=== PATIENT | male | born 1960 | race Caucasian/White ===

== ENCOUNTER 2025-03-20 14:25 | Emergency (ER) | payer BC, SELFPAY ==
[2025-03-20 14:29] VITALS: BP 146/85; PULSE 88; RESP 18; TEMP 36.8; O2SAT 95; BMI 29.6
--- NOTE | 2025-03-20 14:40 | ED_ITS ---
HPI - General Adult General Chief complaint: Head Injury/Pain Stated complaint: Fell On Face Time Seen by Provider: 03/20/25 14:31 History of Present Illness HPI narrative: patient was outside with 5 yr old granddaughter cedric price and she fell causing patient to fall but did not want to fall on her so jumped falling on concreate on right side with right brow lac, right upper cheek bone lac. vision was off after event blurry but stated is returning now. denies nausea or LOC. right hand hurts on the medial side . 64-year-old man presenting to the emergency department after a fall. Was assisting granddaughter with kattyer skmeka. When she fell he jumped over her f alling onto his right side. No loss of consciousness. Denies neck or back pain. Hurt his right hand a little as well but he thinks that is fine. No chest pain or shortness of breath. Not anticoagulated. Right eye historically with poor vision since retinal injury/tear. More sluggish pupil he says here as well. The left eye is more reactive and also amblyopic Thinks it was likely the sunglasses that cut his face; they were destroyed Related Data Home Medications ?Medication ?Instructions ?Recorded ?Confirmed Lexapro PO DAILY 03/20/25 Allergies Allergy/AdvReac Type Severity Reaction Status Date / Time No Known Drug Allergies Allergy Verified 03/20/25 14:38 Review of Systems Status of ROS: Reports: 6 or more systems reviewed and unremarkable except as noted in History and below Exam Narrative: Exam Narrative: Pleasant. NAD. Positive. Breathing easily. Head with some fresh in dried blood on the right side primarily. Left pupil is mildly dilated relative to the right. Is also more quickly reactive consistent with history. There is a 1 in laceration gapping in the outer right brow. Also 3 quarter-inch partial dermal laceration horizontal in the right outer maxillary ridge. A long linear scrape that deepens towards the lower face that runs from the brow laceration all the way down the cheek. Oropharynx unremarkable. Neck is supple nontender. Back nontender. No pain to palpation over the clavicles. Mildly sore to the palpation of the medial hand of the right. Opens and closes without difficulty. Good slip box changer strength. Moves all extremities without difficulty. Const: Vital Signs, click to edit/add: Vital Signs - 24 hr 03/20/25 14:29 Temperature 98.2 F Pulse Rate [Pulse Oximeter] 88 Respiratory Rate 18 Blood Pressure [Ri ght Upper Arm] 146/85 H Pulse Oximetry 95 Oxygen Delivery Me thod Room Air Documenting provider has reviewed patient's vital signs: yes Course Vital Signs Vital signs: Initial Vital Signs Temperature 98.2 F 03/20/25 14:29 Temperature Source Temporal Artery Scan 03/20/25 14:29 Pulse Rate 88 03/20/25 14:29 Respiratory Rate 18 03/20/25 14:29 Blood Pressure 146/85 H 03/20/25 14:29 Blood Pressure Mean 105 03/20/25 14:29 Blood Pressure Position Sitting 03/20/25 14:29 Pulse Oximetry 95 03/20/25 14:29 Oxygen Delivery Method Room Air 03/20/25 14:29 Vital Signs Temperature 98.2 F 03/20/25 14:29 Pulse Rate 88 03/20/25 14:29 Respiratory Rate 18 03/20/25 14:29 Blood Pressure 146/85 H 03/20/25 14:29 Pulse Oximetry 95 03/20/25 14:29 Oxygen Delivery Method Room Air 03/20/25 14:29 Temperature 98.2 F 03/20/25 14:29 Pulse Rate 88 03/20/25 14:29 Respiratory Rate 18 03/20/25 14:29 Blood Pressure 146/85 H 03/20/25 14:29 Pulse Oximetry 95 03/20/25 14:29 Oxygen Delivery Method Room Air 03/20/25 14:29 Medications Administered Medications: Discontinued Medications Generic Name Dose Route Start Last Admin Trade Name Freq PRN Reason Stop Dose Admin Lidocaine/Epinephrine 5 ml 03/20/25 15:08 03/20/25 15:14 Lidocaine 1%-Epi 1:100,000 INFILTRATI 03/20/25 15:09 5 ml ONCE ONE Administration Medical Decision Making MDM Narrative Medical decision making narrative: These injuries do appear to be consistent with the glasses. We did discuss head imaging but I think this will not be necessary in this case. No degree of distracting injuries to warrant neck imaging. I think hand does not require imaging either. Appears quite clear. Does not appear to be concussed. Suturing would be in order here. Possibly Steri-Strips to the right maxillary ridge. Did return with lidocaine with epinephrine. Injected into the brow wound. Further cleansed with Shur-Clens solution. I sutured this with interrupted sutu res of Ethilon. Very good wound approximation control bleeding is achieved. Anesthetized also the right areas I think actually this would be more easily managed with sutures. Should also size of scar. Interrupted Ethilon sutures placed here as well. Improved appearance/wound approximation. Tolerated all this quite well. Bacitracin and Band-Aid placed. See patient discharge plan for further discussion sutures out in 6-7 days. antibiotic ointment for 4 days and then to a dry dressing. ok to get wet but try not to soak while sutures are in. for further scar reduction/wound healing if desired -- after the scab falls off, can apply daily vitamin e oil or something like maderma or silicone-containing ointments or bandaids daily. especially protect from sun exposure for the first 9 - 12 months. I would probably keep the longer scrape moist with antibiotic ointment over this next week at least Watch for spreading redness after 2 days accompanied by heat, swelling, marked increase in pain, purulent drainage. Signs or symptoms of a concussion might be nausea or headache upon exertion which can also be an indication to back off that level of activity and reassess in a week.? Concussion can also be represented by smoldering nausea or smoldering headache, difficulty with concentration, mood lability, general somnolence, sense of persistent fog or dizziness/lightheadedness.? If these symptoms are becoming apparent and continuing beyond 7-10 days, be re-evaluated for further recommendations. Discharge Plan Discharge Clinical Impression: Closed head injury, Face lacerations Patient Disposition: Home w/ Parent or Adult Condition: Improved Additional Instructions: sutures out in 6-7 days. antibiotic ointment for 4 days and then to a dry dressing. ok to get wet but try not to soak while sutures are in. for further scar reduction/wound healing if desired -- after the scab falls off, can apply daily vitamin e oil or something like maderma or silicone-containing ointments or bandaids daily. especially protect from sun exposure for the first 9 - 12 months. I would probably keep the longer scrape moist with antibiotic ointment over this next week at least Watch for spreading redness after 2 days accompanied by heat, swelling, marked increase in pain, purulent drainage. Signs or symptoms of a concussion might be nausea or headache upon exertion which can also be an indication to back off that level of activity and reassess in a week.? Concussion can also be represented by smoldering nausea or smoldering headache, difficulty with concentration, mood lability, general somnolence, sense of persistent fog or dizziness/lightheadedness.? If these symptoms are becoming apparent and continuing beyond 7-10 days, be re-evaluated for further recommendations. Prescriptions: No Action Lexapro PO DAILY Follow Up/Referrals: Provider,Not a Local [Primary Care Provider] - Stand Alone Forms: [employer] Info Instructions
[2025-03-20] MEDS: LIDOCAINE 1%-EPI 1:100,000 5 ML INFILTRATI (15:14)
--- OUTSIDE RECORDS SUMMARY | 2025-03-20 15:33 | XMS_ITS | Clinical Summary ---
Author Organization [facility] Address [facility] [place] [address] Care Team Providers Care Technical Training Coordinator Name Role Phone Jalen Rao MD Primary Care Provide r Allergies Active Allergy Reactions Criticality Noted Date Comments Thimerosal Other - Describe In Comment Field 05/03/2023 Eye irritation Medications lisinopril-hyd rochlorothiazi de 20-12.5 mg tablet (PRINZIDE) Take 1 Tablet by mouth once daily. 3 Active escitalopram oxalate (LEXAPRO) 10 mg tablet Take 10 mg by mouth every morning. 3 Active dorzolamide-ti moloL (COSOPT) 2-0.5 % ophthalmic solution Place 1 Drop into both eyes two times daily. Active latanoprost (XALATAN) 0.005 % ophthalmic solution Place 1 Drop into both eyes at bedtime. Active multivitamin with minerals (MULTIPLE VITAMIN-MINERA LS ORAL) Take 1 Tablet by mouth once daily. Active naproxen (ALEVE) 220 mg tablet Take 220 mg by mouth once daily. Active sennosides-doc usate (SENOKOT S) (8.6-50 mg) tabletIndicati ons:Achalasia Take 1 Tablet by mouth 2 times daily if needed for Constipation. 20 Tablet 05/06/2023 10:40 AM CDT 3 Active oxyCODONE (ROXICODONE) 5 mg immediate release tabletIndicati ons:Achalasia Take 1-2 Tablets (5-10 mg) by mouth every 4 hours if needed for Pain. 8 Tablet 05/06/2023 10:40 AM CDT 3 Active ibuprofen (ADVIL; MOTRIN) 600 mg tabletIndicati ons:Achalasia Take 1 Tablet (600 mg) by mouth every 6 hours if needed for Pain. Maximum of 3200 mg in 24 hours. 30 Tablet 05/06/2023 10:40 AM CDT 3 Active acetaminophen (TYLENOL EXTRA STRGTH) 500 mg tabletIndicati ons:Achalasia Take 1 Tablet (500 mg) by mouth every 6 hours. Max acetaminophen dose: 4000mg in 24 hrs. 40 Tablet 05/06/2023 10:40 AM CDT 3 Active omeprazole (PRILOSEC) 20 mg Delayed-Releas e capsuleIndicat ions:Achalasia Take 1 Capsule (20 mg) by mouth once daily before a meal. 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 Gender Identity Not on file Sexual Orientation Not on file Obstetrics History Last Filed Vital Signs Vital Sign Reading Time Taken Comments Blood Pressure 120/68 05/06/2023 12:45 PM CDT Pulse 79 05/06/2023 12:45 PM CDT Temperature 36.4 C (97.5 F) 05/06/2023 11:45 AM CDT Respiratory Rate 16 05/06/2023 12:4 5 PM CDT Oxygen Saturation 98% 05/06/2023 12: 45 PM CDT Inhaled Oxygen Concentration - - Weight 82.1 kg (180 lb 14.4 oz) 05/06/2023 7:15 AM CDT Height 172.7 cm (5' 8) 05/06/2023 7:15 AM CDT Body Mass Index 27.51 05/06/2023 7:15 AM CDT Plan of Treatment Health Maintenance Due Date Last Done Comments Tdap 1969 Depression screening for age 12+ 1970 BMI (ht and wt on same day) for age 18+ 1976 Hepatitis C screening for age 18-79 1976 Tetanus booster 1978 Colonoscopy through age 75 2003 Lipids for age 45-75 2003 Pneumococcal series for age 50+ (1 of 1 - PCV) 2008 Zoster (shingles) series for age 50+ (1 of 2) 2008 COVID-19 vaccine series ( season) 2024 05/16/2022, 02/17/2021, 01/27/2021 Influenza Vaccine (Season Ended) 2025 RSV vaccine for adults or pr egnancy (1 - 1-dose 75+ series) 2033 Insurance [facility] Advance Directives * Full Code (Latest Code Status on File) Date Activated Date Inactivated Comments 05/06/2023 6:09 AM 05/06/2023 7:13 PM Question Answer Comments Code Status Discussion: Unable to Assess Preferences, Provider to review later Care Teams Technical Training Coordinator Relationship Specialty Start Date End Date Jalen Rao MD [address], [id number] [place] [address] PCP - General Family Practice 04/16/23
--- OUTSIDE RECORDS SUMMARY | 2025-03-20 15:33 | XMS_ITS | Encounter Summary ---
Author Organization [place] Address [address] [place] [address] Care Team Providers Care Play Writer Name Role Phone Jalen Rao MD Primary Care Provide r Jalen Rao MD Unavailable Leann Pennington PA-C Unavailable [phone]- [phone] Jalen Rao MD Unavailable Reason for Visit * Reason Comments Medication Refill Encounter Details Date Type Department Care Team ([facility] st Contact Info) Description 03/06/2019 Refill [facility] [address] [place] [address] Jalen Rao MD [address] [place] [address], [id number] [place] [id number] Medication Refill Social History Tobacco Use Types Packs/Day Years Used Date Smoking Tobacco: Never Smokeless Tobacco: Never Alcohol Use Standard Drinks/Week Comments No 0 (1 standard drink = 0.6 oz pur e alcohol) Sex and Gender Information Value Date Recorded Sex Assigned at Not on file 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 Gender Identity Not on file Sexual Orientation Not on file 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 A 30 day supply was called into the pharmacy for the patient, routing to front office specialist to call and schedule patient. 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
--- OUTSIDE RECORDS SUMMARY | 2025-03-20 15:33 | XMS_ITS | Encounter Summary ---
Author Organization [place] Address [address] [place] [address] Care Team Providers Care Form Grader Name Role Phone Jalen Rao MD Primary Care Provide r Jalen Rao MD Unavailable Leann Pennington PA-C Unavailable [phone]- [phone] Jalen Rao MD Unavailable Reason for Visit * Reason Comments Medication Refill Encounter Details Date Type Department Care Team ([facility] st Contact Info) Description 05/31/2018 Refill [facility] [address] [place] [address] Jalen Rao MD [address] [place] [address], [id number] [place] [address] Medication Refill Social History Tobacco Use Types Packs/Day Years Used Date Smoking Tobacco: Never Smokeless Tobacco: Never Alcohol Use Standard Drinks/Week Comments No 0 (1 standard drink = 0.6 oz pur e alcohol) Sex and Gender Information Value Date Recorded Sex Assigned at Not on file 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 * Telephone Encounter - Elly Neville MA - 06/02/2018 8:33 AM CDT 30 days called [facility] lisinopril-hydrochlorothiazide (PRINZIDE/ZESTORETIC) 20-12.5 MG per tablet Pt due for a non fasting ov Michael [phone] (home) [phone] (work) documented in this encounter Plan of Treatment Not on file documented as of this encounter Visit Diagnoses Diagnosis Benign essential hypertension Essential hypertension, benign documented in this encounter Additional Health Concerns Infection Onset Date Last Indicated Resolved Time Rule Out COVID-19 08/16/2020 08/16/2020 09/06/2020 11:39 PM CDT Assessment Noted Time PHQ-9 Depression Total Score: 0 09/25/20 17 6:55 PM 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
--- OUTSIDE RECORDS SUMMARY | 2025-03-20 15:33 | XMS_ITS | Encounter Summary ---
Author Organization [facility] Address [address] [place] [address] Care Team Providers Care [employer]obile Club Information Clerk Name Role Phone Rodrick Khan MD Primary Care Provider Myrna rohanilaJalen Espinoza MD Primary Care Provide r Jalen Rao MD Unavailable Leann Pennington PA-C Unavailable +- [phone] Jalen Rao MD Unavailable Reason for Visit * Reason Comments Medication Refill Encounter Details Date Type Department Care Team (Late st Contact Info) Description 06/23/2015 Refill [facility] [address] [place] [id number] Rodrick Khan MD XXXX RESIGNED/INACTIVE XXXX Medication Refill Social History Tobacco Use Types Packs/Day Years Used Date Smoking Tobacco: Never Smokeless Tobacco: Never Alcohol Use Standard Drinks/Week Comments No 0 (1 standard drink = 0.6 oz pur e alcohol) Sex and Gender Information Value Date Recorded Sex Assigned at Not on file 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 Elly [phone] (home) [phone] (work) documented in this encounter Plan of Treatment Not on file documented as of this encounter Visit Diagnoses Diagnosis Adjustment disorder with depressed mood- Primary documented in this encounter Additional Health Concerns Infection Onset Date Last Indicated Resolved Time Rule Out COVID-19 08/16/2020 08/16/2020 09/06/2020 11:39 PM CDT documented as of this encounter Care Teams Automobile Club Information Clerk Relationship Specialty Start Date End Date Rodrick Khan MD PCP - General 02/23/09 08/01/16 Jalen Rao MD [address] [place] [address] PCP - General Family Practice 08/02/16 Jalen Rao MD [address] [address] Assigned PCP 09/16/16 10/08/20 Leann Pennington PA-C [address] , [address] [place] [address] [address] Assigned PCP 10/09/20 10/29/20 Jalen Rao MD [address] [address] Assigned PCP 10/30/20 documented as of this encounter
--- OUTSIDE RECORDS SUMMARY | 2025-03-20 15:33 | XMS_ITS | Clinical Summary ---
Author Organization [facility] Address [address] [place] [address] Care Team Providers Care Budder Name Role Phone Jalen Rao MD Primary Care Provide r Jalen Rao MD Unavailable Allergies Active Allergy Reactions Criticality Noted Date Comments Thimerosal (Thiomersal) 09/02/2014 Eye irritation Medications Multiple Vitamins-Minerals (MULTIVITAMIN ADULT PO) Take 1 tablet by mouth daily Active dorzolamide-timol ol (COSOPT) 2-0.5 % ophthalmic solution Place 1 drop into both eyes 2 times daily Active latanoprost (XALATAN) 0.005 % ophthalmic solution Place 1 drop into both eyes At Bedtime Active NAPROXEN SODIUM PO Take 220 mg by mouth every morning Active SUMAtriptan (IMITREX) 100 MG tabletIndications :Migraine variant, intractable Take 1 tablet (100 mg) by mouth at onset of headache for migraine May repeat in 2 hours. Max 8 tablets/24 hours. 18 tablet 9 Active escitalopram (LEXAPRO) 10 MG tabletIndications :Major depressive disorder, recurrent episode, in full remission TAKE 1 TABLET (10 MG) BY MOUTH DAILY 90 tablet 3 5 Active lisinopril-hydroc hlorothiazide (ZESTORETIC) 20-12.5 MG tabletIndications :Benign essential hypertension Take 1 tablet by mouth daily. 90 tablet 3 5 Active Active Problems Problem Noted Date Diagnosed Date Achalasia of esophagus 05/01/2023 3 Migraine variant, intractable 11/09/2017 Intractable migraine 11/09/2017 Atypical migraine 11/08/2017 Major depressive disorder, r ecurrent episode, in full remission 09/25/2017 Primary localized osteoarthr osis, hand, unspecified laterality 09/05/2016 ACP (advance care planning) 08/08/2015 Overview (08/08/2015): Advance Care Planning 08/08/2015: ACP Review and Resources Provided: Reviewed chart for advance care plan. Makayla Parson has no plan or code status on file. Discussed available resources and provided with information. Confirmed code status reflects current choices pending further ACP discussions. Confirmed/documented legally designated decision maker(s). Added by Carina Murphy History of detached retina repair 11/02/2014 Visual loss, left eye/ amblyopia 11/02/2014 Migraine equivalent 02/29/2012 Overview (03/31/2012): Complex migraine, has seen Dr Shin Najera MD [facility] in neurology and cerebral vascular disease. Resolved Problems Problem Noted Date Diagnosed Date Resolved Date Health Residential 11/02/2014 04/27/2024 Advance care planning 11/02/20142014 Overview (11/02/2014): Advance Care Planning: ACP Review and Resources Provided: Reviewed chart for advance care plan. Makayla Genaodillon has no plan or code status on file. Discussed available resources and provided with information. Confirmed code status reflects current choices pending further ACP discussions. Confirmed/documented designated decision maker(s). See permanent comments section of demographics in clinical tab. Added by Carina Murphy on 11/02/2014 Adjustment disorder with depressed mood 02/23/2009 09/25/2017 Encounters Date Type Department Care Team Description 12/24/2024 Telephone [facility] [address] [place] [address] Jalen Rao MD Letter Request 12/23/2024 2:00 PM EDUCATION RN Office Visit [facility] [address] [place] [address] Jalen Rao MD Routine general medical examination at a health care facility (Primary Dx); Mixed hyperlipidemia; Benign essential hypertension; Major depressive disorder, recurrent episode, in full remission; Achalasia-resolved after myotomy; Special screening for malignant neoplasm of prostate; Need for vaccination 12/23/2024 Travel from Last 3 Months Immunizations Immunization Administration Dates Next Due Flu, Unspecified 08/11/2024 Influenza Vaccine >6 months,quad, PF 03/2019,09/18/2017,09/05/2016,2014,11/02/2014 Influenza,INJ,MDCK,PF,Quad >6mo(Flucelvax) 07/24/2020 Pneumococcal 20 valent Conju gate (Prevnar 20) 12/23/2024 TD,PF 7+ (Tenivac) 10/07/2019 TDAP Vaccine (Boostrix) 02/23/2009 Td (Adult), Adsorbed 01/20/1998 Zoster recombinant adjuvante d (Shingrix) 12/16/2019,08/17/2019 Family History Medical History Relation Comments Alcohol/Drug Father of etoh Hypertension Father Coronary Artery Disease Maternal Uncle Hypertension Mother Psychotic Disorder Mother depression Cerebrovascular Disease No family hx of Colon Cancer No family hx of Diabetes No family hx of Prostate Cancer No family hx of Relation Status Comments Father Maternal Uncle Mother Alive Social History Tobacco Use Types Packs/Day Years Used Date Smoking Tobacco: Never Passive Smoke Exposure: Never Smokeless Tobacco: Never Tobacco Cessation:Counseling Given: Not Answered Alcohol Use Standard Drinks/Week Comments No 0 (1 standard drink = 0.6 oz pur e alcohol) PHQ-2 Answer Date Recorded PHQ-2 Score 0 12/23/2024 Adolescent Education Answer Date Record ed Getting School Help Needed Not on file 08/25 Sex and Gender Information Value Date Recorded Sex Assigned at Not on file Legal Sex Male 3:19 AM EDUCATION RN Gender Identity Not on file Sexual Orientation Not on file 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, 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 [employer] Not on file Not on file Not on file Last Filed Vital Signs Vital Sign Reading Time Taken Comments Blood Pressure 140/92 12/23/2024 2:08 PM EDUCATION RN Pulse 71 12/23/2024 2:08 PM EDUCATION RN Temperature 36.3 C (97.3 F) 12/23/2024 2:08 PM EDUCATION RN Respiratory Rate 20 12/09/2023 2:20 PM EDUCATION RN Oxygen Saturation 99% 12/23/2024 2:08 PM EDUCATION RN Inhaled Oxygen Concentration - - Weight 87.5 kg (193 lb) 12/23/2024 2:08 PM EDUCATION RN Height 172.1 cm (5' 7.75) 12/23/2024 2:08 PM CS T Body Mass Index 29.56 12/23/2024 2:08 PM EDUCATION RN Plan of Treatment Health Maintenance Due Date Last Done Comments ANNUAL REVIEW OF HM ORDERS 1960 CT COLONOGRAPHY 1958 FIT 1958 FLEX SIG 1958 sDNA (Cologuard) 1960 COLONOSCOPY 04/22/2025 04/22/2015 COLORECTAL CANCER SCREENING 04/22/2025 PHQ-9 06/22/2025 12/23/2024, 11/12, 12/05/2022, Additional history exists BMP 12/23/2025 12/23/2024, 11/12, 05/01/2023, Additional history exists COVID-19 Vaccine ( season) 2025 05/16/2022, 02/17/2021, 01/27/2021 Postponed from 07/12/2024 (Other) FALL RISK ASSESSMENT 12/23/2025 12/23/2024, 12/09/19 24 MEDICARE ANNUAL WELLNESS VISIT 12/23/2025 12/23/2024, 12/09/2023, 12/05/2022, Additional history exists DIABETES SCREENING 12/23/2027 12/23/2024, 0 12/09/2023, 05/01/2023, Additional history exists ADVANCE CARE PLANNING 05/01/2028 05/01/2023, 020 DTAP/TDAP/TD IMMUNIZATION (3 - Td or Tdap) 10/07/2029 10/07/2019, 02/23/2009, 01/20/1998 LIPID 12/23/2029 12/23/2024, 11/12, 12/06/2022, Additional history exists RSV VACCINE (1 - 1-dose 75+ series) 2033 HEPATITIS C SCREENING Completed 11/02/2014 ZOSTER IMMUNIZATION Completed 12/16/2019, 9 DEPRESSION ACTION PLAN Completed 11/29/2021, 2021 INFLUENZA VACCINE Completed 08/11/2024, , 09/15/2019, Additional history exists Pneumococcal Vaccine: 50+ Years Completed 12/23/2024 HPV IMMUNIZATION Aged Out No longer e ligible based on patient's age to complete this topic MENINGITIS IMMUNIZATION Aged Out No l onger eligible based on patient's age to complete this topic Procedures Procedure Name Priority Date/Time Associated Diagnosis Comments COMPREHENSIVE METABOLIC PANEL ([facility]) Routine 12/23/2024 4:23 PM EDUCATION RN Mixed hyperlipidemia Benign essential hypertension LIPID PANEL ([facility]) Routine 12/23/2024 4:1 9 PM EDUCATION RN Mixed hyperlipidemia PSA TOTAL ([facility]) Routine 12/23/2024 3:4 3 PM EDUCATION RN Special screening for malignant neoplasm of prostate AR COLLECTION VENOUS BLOOD VENIPUNCTURE Routine 12/23/2024 2:26 PM EDUCATION RN Mixed hyperlipidemia Benign essential hypertension Special screening for malignant neoplasm of prostate ZZHC COLONOSCOPY W BIOPSY Routine 04/22/2015 SCANNING RESULTS HEPATITIS C ANTIBODY Routine 11/02/2014 1:36 PM EDUCATION RN Need for hepatitis C screening test from Last 3 Months or Most Recently Relevant to Health Maintenance Results * (ABNORMAL) Comprehensive Metobolic Panel ([facility]) (12/23/2024 4:23 PM EDUCATION RN) Carbon Dioxide 27.6 20 - 32 mmol/L [facility] Creatinine 0.95 0.60 - 1.30 mg/dL [facility] Glucose 84 60 - 99 mg/dL [facility] Sodium 141.6 135 - 146 mmol/L [facility] Potassium 3.65 3.5 - 5.3 mmol/L [facility] Chloride 105.8 98 - 110 mmol/L [facility] Protein Total 7.1 6.1 - 8.1 g/dL [facility] Albumin 3.8 3.6 - 5.1 g/dL [facility] Alkaline Phosphatase 59 33 - 130 U/L [facility] ALT 73(A) 0 - 32 U/L [facility] AST 58(A) 0 - 35 U/L [facility] Bilirubin Total 1.2 0.2 - 1.2 mg/dL [facility] Urea Nitrogen 13 7 - 25 mg/dL [facility] Calcium 9.6 8.6 - 10.3 mg/dL [facility] BUN/Creatinine Ratio 14 6 - 32 [facility] Blood 12/23/2024 4:23 PM EDUCATION RN Jalen Rao MD LAB - [facility] Final Result Performing Organization Address [facility] de Phone Number [facility] [address] [phone] * (ABNORMAL) Lipid Panel ([facility]) (12/23/2024 4:19 PM EDUCATION RN) [facility] Cholesterol 169 0 - 199 mg/dL [facility] Triglycerides 227(A) 0 - 149 mg/dL [facility] HDL Cholesterol 30(A) 40 - 150 mg/dL [facility] LDL-C 94 0 - 129 mg/dL [facility] Cholesterol/HDL Ratio 6(A) 0 - 5 [facility] Blood 12/23/2024 4:19 PM EDUCATION RN Jalen Rao MD LAB - [facility] Final Result Performing Organization Address City/[facility] Co de Phone Number [facility] [address] [place] [phone] * PSA Total ([facility]) (12/23/2024 3:43 PM EDUCATION RN) Pathologist [facility] PSA 2.27 < OR = 4.00 ng/mL [facility] Comment: The total PSA value from this assay system is standardized against the WHO standard. The test result will be approximately 20% lower when compared to the equimolar-standardized total PSA ([facility] [place]). Comparison of serial PSA results should be interpreted with this fact in mind. This test was performed using the Siemens chemiluminescent method. Values obtained from different assay methods cannot be used interchangeably. PSA levels, regardless of value, should not be interpreted as absolute evidence of the presence or absence of disease. Blood 12/23/2024 3:43 PM EDUCATION RN 12/24/2024 6:23 AM EDUCATION RN Narrative Resulting Agency Comment Performing Organization Information: [facility] [address] [place] [address] Jesus Rodríguez Jalen Rao MD LAB - NON-BEAKER BLOO D LABS Final Result Performing Organization Address [facility]/ZIP Co de Phone Number [facility] [address] [place] [address], [facility] [phone] * COLONOSCOPY W BIOPSY (04/22/2015) Provider Abstract PROCEDURES Final Result Performing Organization Address [facility] Co de Phone Number [facility] * Hepatits C antibody ([facility]) (11/02/2014 1:36 PM EDUCATION RN) HCV Antibody NON-REACTI VE NON-REACTI VE [facility] SIGNAL TO CUT OFF - [facility] 0.01 <1.00 [facility] Blood specimen (specimen) 11/02/2014 1:36 PM EDUCATION RN 11/03/2014 1:46 AM EDUCATION RN Narrative Resulting Agency Comment Performing Organization Information: CB [facility] [address] [place] [address] Jesus Rodríguez M.D. Rodrick Khan MD LAB - BLOOD ORDERABLES Fin al Result Performing Organization Address [facility] Co de Phone Number [facility] [address] [place] [address] from Last 3 Months or Most Recently Relevant to Health Maintenance Insurance BCBS OUT OF STATE BCBS OUT OF STATE BCBS OUT OF STATE Advance Directives For more information, please contact: [phone] * Full Code (Latest Code Status on File) Date Activated Date Inactivated Comments 11/09/2017 1:24 AM 11/09/2017 8:32 PM Care Teams Budder Relationship Specialty Start Date End Date Jalen Rao MD [address] , [address] [address] PCP - General Family Practice 08/02/16 Jalen Rao MD [address], [address] [address] Assigned PCP 10/30/20
== END 2025-03-20 16:38 | disposition home or self-care (01) ==
PROVIDERS: Emergency Provider Family Medicine
DX: S01.112A Laceration without foreign body of left eyelid and periocular area, initial encounter (principal); S09.90XA Unspecified injury of head, initial encounter; W19.XXXA Unspecified fall, initial encounter
CPT/HCPCS: 12013; 99283; 99284